=== PATIENT | male | born 1940 | race Caucasian/White ===

== ENCOUNTER → 2020-10-23 | Outpatient (CLI) | payer MEDICARE ==
[~2020-10-23] MED LIST: ASCO500T8 PO; B-12 PO; NONE PER PT; VITAMIN D PO
== END | disposition home or self-care (01) ==
LOC: RAD 16:53
PROVIDERS: ATTEND Physician Assistant Medical
DX: R20.2 Paresthesia of skin (principal); M79.604 Pain in right leg